=== PATIENT | male | born 2005 | race Caucasian/White ===

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

== ENCOUNTER 2023-03-09 19:45 | Emergency (ER) | payer OTHER ==
[~2023-03-09] VITALS: Ht 180.3 cm; Wt 88.9 kg
[2023-03-09] MEDS ORDERED: NAPROXEN250 MG PO (20:29)
== END 2023-03-09 20:38 | disposition home or self-care (01) ==
LOC: ED 19:45
DX: S60.221A Contusion of right hand, initial encounter (principal); Z79.899 Other long term (current) drug therapy; W22.8XXA Striking against or struck by other objects, initial encounter; Y93.89 Activity, other specified; Y92.89 Other specified places as the place of occurrence of the external cause; Y99.8 Other external cause status